=== PATIENT | female | born 1960 | race Caucasian/White ===

== ENCOUNTER 2016-09-08 11:26 | Observation (INO) ==
[2016-09-08] MEDS ORDERED: HUMULIN R ONE (12:13)
[2016-09-08] MEDS ORDERED: NS 1,000 ML ONE ×3 (12:14→18:51)
[2016-09-08] MEDS ORDERED: NS 500 ML ONE (16:00)
--- NOTE | 2016-09-08 16:56 | Diag Imaging Result Document ---
PROCEDURE NAME: ABDOMEN/PELVIS W/CONTRAST - 09/08/2016 CT OF THE ABDOMEN WITH INTRAVENOUS AND ORAL CONTRAST: FINDINGS: There are no previous studies available for comparison. There is minimal subsegmental atelectasis present in the lung bases. There are calcified granulomatous nodes in the left hilum. There is profound hepatic steatosis. There are numerous calcified granulomata in the spleen. The adrenal glands are not enlarged. The pancreas is unremarkable in appearance. There are no apparent gallstones. The aorta is normal in caliber and the mesenteric arteries are patent. The renal arteries are normal in appearance. The kidneys are without evidence of hydronephrosis or mass. The small bowel is not distended. There is some stool in the colon. There is no evidence of significant adenopathy. CT OF THE PELVIS WITH INTRAVENOUS AND ORAL CONTRAST: FINDINGS: The appendix is normal in appearance. There are no adnexal masses. There is minimal free pelvic fluid. There is a bone island in the right iliac bone. There is no evidence of acute bony abnormality. IMPRESSION: Severe hepatic steatosis versus steatohepatitis. Otherwise, no evidence of acute disease.
[2016-09-08 18:37] LABS: ALLEN TEST YES; BE -3.4 mmoll (-3.0-3.0); BLOOD TYPE ARTERIAL; DRAW SITE R RADIAL; METHB 1.4 % (0.0-1.5); O2(CT) 18.6 mL/dL (15.0-23.0); PCO2(98.6) 32 mmHg (35-45); PO2(98.6) 72 mmHg (60-100); SAMPLE BLOOD; SAO2 99.4 % (95.0-100.0); THB 13.9 g/dL (11.5-17.4); pH(98.6) 7.41 (7.35-7.45)
[2016-09-08 18:38] LABS: ALLEN TEST YES; BE -3.5 mmoll (-3.0-3.0); BLOOD TYPE ARTERIAL; DRAW SITE R RADIAL; METHB 1.9 % (0.0-1.5); O2(CT) 17.4 mL/dL (15.0-23.0); PCO2(98.6) 32 mmHg (35-45); PO2(98.6) 76 mmHg (60-100); SAMPLE BLOOD; SAO2 99.1 % (95.0-100.0); pH(98.6) 7.41 (7.35-7.45)
[2016-09-08 18:43] LABS: MODALITY ROOM AIR
[2016-09-08 18:44] LABS: MODALITY ROOM AIR
[2016-09-08] MEDS ORDERED: TYLENOL ONE (18:51)
[2016-09-08] MEDS ORDERED: PHENERGAN ONE (18:51)
[2016-09-08 19:11] LABS: URINE CULTURE NEEDED? NO; URINE MICRO REVIEW NEEDED? NO; URINE SOURCE CLEAN CATCH
[2016-09-08 20:18] LABS: BILIRUBIN URINE NEGATIVE (NEGATIVE); BLOOD URINE NEGATIVE (NEGATIVE); COLOR YELLOW; GLUCOSE URINE >1000 mg/dL (NEGATIVE); LEUKOCYTES URINE NEGATIVE (NEGATIVE); NITRITE URINE NEGATIVE (NEGATIVE); PH URINE 5.5; PROTEIN URINE TRACE mg/dL (NEGATIVE); SP GRAVITY URINE 1.026; TURBIDITY URINE CLEAR (CLEAR); UR EPITHELIAL CELLS <10 /HPF (<10); URINE BACTERIA NEGATIVE /HPF; URINE RBC <10 /HPF (<10); URINE WBC <10 /HPF (<10); UROBILINOGEN URINE NORMAL (NORMAL)
[2016-09-08 21:01] LABS: BASO% 0.1 % (0.0-0.8); EOS# 0.01 X1000 (0.0-0.7); EOS% 0.1 % (0.0-10.0); HEMATOCRIT 47.6 % (37.0-47.0); HEMOGLOBIN 15.6 g/dL (12.0-16.0); IMM GRAN# 0.05 X1000 (0.0-0.04); IMM GRAN% 0.3 % (0.0-0.5); LYMPH# 0.53 X1000 (1.2-3.4); LYMPH% 3.7 % (20.5-51.1); MANUAL DIFF NEEDED? YES; MCH 27.5 PG (27-31); MCHC 32.8 g/dL (33-37); MCV 83.8 FL (81-99); MONO# 0.66 X1000 (0.11-0.59); MONO% 4.6 % (1.7-9.3); MPV 10.2 FL (7.4-10.4); NEUT% 91.2 % (42.2-75.2); PLT 444 X1000 (130-400); RBC 5.68 XMIL (4.2-5.4)
[2016-09-08 21:12] LABS: BANDS 1 % (0-1); LYMPHS 9 % (21-51); MONO 2 % (1-9)
--- NOTE | 2016-09-08 23:06 | HISTORY AND PHYSICAL ---
HISTORY OF PRESENT ILLNESS: She has felt bad since earlier this week, at least 3 or 4 days. Her main trouble is her stomach felt like it was bloating, and pain, felt like it was heavy. She had increasing nausea, and then today she had quite a bit of nausea several times. She is aching all over, general malaise. Her head is hurting, and has persistent nausea. She feels like she has had a fever, temperature 99. Feels like she has had some chills. She does not describe any cough or shortness of breath or chest pain or gross hematuria. She has had some loose stools just in the last 24 hours. She has been taking Pepto-Bismol. She has taken some Prilosec over-the- counter without much relief. PAST MEDICAL HISTORY: 1. Diabetes mellitus type 2, diagnosed about 4 years ago. She is followed by Dr. Zak Urbina. She has been on extended release metformin and glipizide, and recently because of insurance, she had to be switched to the regular metformin 1000 mg twice a day, glipizide 5 mg I believe twice a day. 2. Hypertension. 3. Tubal ligation. 4. She has had some colon polyps removed. 5. She has had an arrhythmia. Dr. Tucker has followed her. It sounds like it is supraventricular tachycardia. She came to [place] about 2 years ago. Her heart rate is getting up to around 70s. They gave her an injectable that seemed to resolve, but I do suspect that it is supraventricular tachycardia. I don't have any further details on that. ALLERGIES: No known drug allergies. FAMILY HISTORY: Heart disease, cancer, hypertension, diabetes. SOCIAL HISTORY: 1. Negative for tobacco, negative for ethanol. MEDICATIONS: 1. Glipizide XL 5 mg once a day. 2. Metformin a 1000 mg b.i.d. 3. Lisinopril 20 mg daily. 4. Metoprolol XR 50 mg daily. 5. Digoxin 0.125 mg p.o. daily. 6. The others were Pepto-Bismol, and omeprazole, which she has taken [id number]. REVIEW OF SYSTEMS: She has not really eaten since yesterday, before that she was eating fine. She has just been too nauseated. HEENT: Unremarkable. Questionable that she did feel like she had some subjective fever and chills. Respiratory: Unremarkable. GI/: Other than nausea and abdominal discomfort, no gross hematuria or dysuria. Musculoskeletal/neurologic: Just generally feels bad, general malaise, aching all over, headache. PHYSICAL EXAMINATION: GENERAL: Well developed, well nourished female. HEENT: Pupils are equal round. CVP less than 6 cm. NECK: Neck veins are not distended. LUNGS: Clear in all lung [place]. CARDIOVASCULAR: Regular rate without murmurs or issues. ABDOMEN: She is tender, but she does not have any acute rebound tenderness, but her xiphoid process and her epigastric area has been sore and hurting her for a while, and it is a little touchy when you touch it there. I do not appreciate any tenderness in the lower quadrants. She did make mention that she wondered if she has diverticulosis or diverticulitis, and she did state she is belching a lot. EXTREMITIES: Without clubbing, cyanosis, edema. SKIN: Warm and dry. Carotid, radial and femoral pulses 2+ and symmetrical. ASSESSMENT AND PLAN: 1. I note that her sugars were above 250s. She has some mild metabolic acidosis, which she is compensating for well, and my suspicion is that this nausea is a combination of metformin plus maybe a viral gastroenteritis. She did have an ultrasound, did not see anything, by report unremarkable. She doesn't really give a history of classic biliary colic, so, I am going to give her some fluids, were going to put on a sliding scale insulin. I do think she is one that is going to benefit from learning how to do a split insulin dose and keep her off the metformin. We will give her something for nausea. 2. We are going to watch her blood pressure. 3. History of arrhythmia, aware. We will see if we can get some records from Dr. Tucker. cc: Quang Smith MD
[2016-09-09 00:20] LABS: AGAP 20; BUN 12 mg/dL (8-22); CHLORIDE 94 mmol/L (98-107); COSMO 281; POTASSIUM 4.5 mmol/L (3.5-5.1); SODIUM 136 mmol/L (136-145); TCO2 22 mmol/L (25-35)
[2016-09-09 00:21] LABS: ALBUMIN 4.4 g/dL (3.5-5.0); ALKALINE PHOSPHATASE 115 U/L (32-104); AMYLASE 27 U/L (20-200); CALCIUM 9.3 mg/dL (8.8-10.2); GOT 23 U/L (10-30); GPT 42 U/L (10-36); TOTAL BILIRUBIN 1.45 mg/dL (0.20-1.00); TOTAL PROTEIN 7.8 g/dL (6.3-8.3)
[2016-09-09 00:22] LABS: LIPASE 40 U/L (13-60); MAGNESIUM 1.6 mg/dL (1.5-2.7)
[2016-09-09] MEDS ORDERED: TYLENOL ONE (01:07)
[2016-09-09] MEDS ORDERED: HUMALOG ONE (04:50)
[2016-09-09] MEDS ORDERED: D50W SYRINGE IV PRN (04:54)
[2016-09-09] MEDS: HUMALOG SUBQ SCH ×4 (07:00→21:04)
[2016-09-09 08:36] LABS: ALLEN TEST YES; BE -0.4 mmoll (-3.0-3.0); BLOOD TYPE ARTERIAL; DRAW SITE L RADIAL; METHB 1.7 % (0.0-1.5); O2(CT) 16.7 mL/dL (15.0-23.0); PCO2(98.6) 30 mmHg (35-45); PO2(98.6) 99 mmHg (60-100); SAMPLE BLOOD; SAO2 99.3 % (95.0-100.0); THB 12.3 g/dL (11.5-17.4); pH(98.6) 7.48 (7.35-7.45)
[2016-09-09 08:39] LABS: MODALITY ROOM AIR
--- NOTE | 2016-09-09 09:48 | Diag Imaging Result Document ---
PROCEDURE NAME: ABDOMEN FLAT/UPRIGHT - 09/09/2016 SUPINE UPRIGHT ABDOMEN: FINDINGS: There is residual oral contrast from the 09/08/2016 CT abdomen and pelvis in the colon and rectum. The bowel gas pattern appears nonspecific and nonobstructive. There is no free air identified. IMPRESSION: Nonspecific bowel gas pattern.
[2016-09-09 10:21] LABS: AGAP 10; ALBUMIN 3.4 g/dL (3.5-5.0); BUN 6 mg/dL (8-22); CALCIUM 8.4 mg/dL (8.8-10.2); CHLORIDE 102 mmol/L (98-107); COSMO 275; POTASSIUM 4.1 mmol/L (3.5-5.1); SODIUM 137 mmol/L (136-145); TCO2 25 mmol/L (25-35)
[2016-09-09 10:47] LABS: DIGOXIN 0.3 ng/mL (0.9-2.0)
[2016-09-09 10:55] LABS: HEMOGLOBIN A1C 8.5 % (4.8-6.0)
[2016-09-09] MEDS ORDERED: NS 1,000 ML ONE (11:59)
[2016-09-09] MEDS ORDERED: ZOFRAN IV PRN (12:05)
[2016-09-09] MEDS ORDERED: TYLENOL PO PRN (12:06)
[2016-09-09] MEDS ORDERED: PHENERGAN PO PRN (12:07)
[2016-09-09] MEDS ORDERED: NS 1,000 ML IV SCH (13:00)
--- NOTE | 2016-09-09 13:54 | PROGRESS NOTE ---
DATE: 09/09/2016 SUBJECTIVE: Ms. Faria is feeling better. No nausea right now, not aching, her tummy is not hurting, she would like to try some liquids. OBJECTIVE: Vital signs: Temperature 99.1 degrees, pulse 86, respirations 15, blood pressure 129/75. HEENT: Pupils are equal, round. Lungs: Are clear in all lung [place]. Cardiovascular: Regular rhythm and rate without murmur, S3. Weight 164 pounds. DATA: Finger stick was 140 this morning. Reviewed lab from yesterday, white count 14,470, hematocrit was 47, platelet count 444,000. Sodium 136, potassium 4.4, chloride 94, bicarb 22, BUN 12, creatinine 0.7 and today sodium 137, potassium 4.1, chloride 102, bicarb 25, BUN 6, creatinine 0.7, blood sugars 175, 179, 162 so feels much better. Blood gases repeated today pH was 7.48, PCO2 was 30, PO2 is 99, O2 saturation 99% on room air. Abdominal pelvic CT done yesterday severe hepatic steatosis versus steatohepatitis, no evidence of acute disease. Abdominal x-ray yesterday nonspecific bowel gas pattern clinically better. ASSESSMENT/PLAN: 1. Clinically much better. Nausea improved. Will start on full liquid diet may be advanced and may continue her fluids. We will continue pattern sugars with sliding scale. 2. Diabetes mellitus type 2. Stopped her metformin. cc: Quang Smith MD
[2016-09-09] MEDS ORDERED: PRILOSEC PO SCH (21:00)
[2016-09-10] MEDS: HUMALOG SUBQ SCH ×2 (07:07→11:45)
[2016-09-10 07:12] LABS: MANUAL DIFF NEEDED? NO
[2016-09-10 07:18] LABS: BASO% 0.3 % (0.0-0.8); EOS% 1.7 % (0.0-10.0); HEMATOCRIT 37.6 % (37.0-47.0); HEMOGLOBIN 12.2 g/dL (12.0-16.0); IMM GRAN# 0.03 X1000 (0.0-0.04); IMM GRAN% 0.5 % (0.0-0.5); LYMPH# 1.82 X1000 (1.2-3.4); LYMPH% 30.1 % (20.5-51.1); MCH 27.7 PG (27-31); MCHC 32.4 g/dL (33-37); MCV 85.5 FL (81-99); MONO# 0.93 X1000 (0.11-0.59); MONO% 15.4 % (1.7-9.3); MPV 10.1 FL (7.4-10.4); PLT 329 X1000 (130-400)
[2016-09-10 07:34] LABS: AGAP 12; ALBUMIN 3.4 g/dL (3.5-5.0); ALKALINE PHOSPHATASE 77 U/L (32-104); BUN 4 mg/dL (8-22); CALCIUM 8.2 mg/dL (8.8-10.2); CHLORIDE 102 mmol/L (98-107); COSMO 282; GOT 44 U/L (10-30); GPT 39 U/L (10-36); MAGNESIUM 1.8 mg/dL (1.5-2.7); POTASSIUM 3.9 mmol/L (3.5-5.1); SODIUM 139 mmol/L (136-145); TCO2 25 mmol/L (25-35); TOTAL BILIRUBIN 0.54 mg/dL (0.20-1.00); TOTAL PROTEIN 5.8 g/dL (6.3-8.3)
[2016-09-10 07:41] VITALS: BP 137/73
[2016-09-10] MEDS ORDERED: TOPROL XL PO SCH (09:00)
[2016-09-10] MEDS ORDERED: LANOXIN PO SCH (09:00)
[2016-09-10] MEDS ORDERED: PRINIVIL PO SCH (09:00)
--- NOTE | 2016-09-11 01:17 | DISCHARGE SUMMARY ---
ADMISSION DATE: 09/08/2016 DISCHARGE DATE: 09/10/2016 HISTORY: She came in on 09/08/2016, complaining of that she felt bad last week. The last 3 or 4 days she has had trouble with her stomach, bloating, pain. It felt heavy. She indicated increased nausea, quite a bit, and threw up several times before she came in. On presentation, she had a mild acidosis. Blood sugars were in the 300 to 400 range, and she recently had been switched from the long-acting metformin to just a regular metformin. We put her on clear liquids, gave her some IV fluids. She showed steady improvement. Blood sugars came down. I did start her on some insulin. Her abdominal x-ray from the 2nd, nonspecific bowel gas pattern. Abdominopelvic CT done on 09/08 was unremarkable, except for severe hepatic steatosis versus steatohepatitis. Labs on presentation, white count was a little elevated at 14,000, hemoglobin was 47, platelet count 444,000. Chemistries unremarkable. Blood sugars came down nicely, and she wanted go home, on 09/10/2016. DISPOSITION: Discharged her home on 09/10/2016. DISCHARGE MEDICATIONS: We will continue on Prilosec 20 mg b.i.d., Toprol-XL 50 mg a day, Prinivil 20 mg a day, she is on digoxin 125 mcg daily, and we had held her metformin. I will put her back on her glipizide, put her back on her metformin. She is on sitagliptin, metformin and Janumet regimen. We will try that again at 50 mg b.i.d. FOLLOWUP: Follow up with Dr. Zak Urbina for her sugar. Note we had checked a dig level, it was low at 0.3. So want her to follow up with her primary care. cc: Quang Smith MD
== END 2016-09-10 15:40 | disposition home or self-care (01) ==
LOC: ED 11:26 → EDIPHOLD 18:40 → INTOOBSV 19:44 → SUATTDRO 19:44 → 3N 09-09 14:47
PROVIDERS: ATTEND Emergency Medicine